=== PATIENT | female | born 2000 | race Asian ===

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

== ENCOUNTER 2019-10-17 22:23 | Emergency (ER) | payer OTHER ==
[~2019-10-17] VITALS: Ht 180.3 cm; Wt 50.8 kg
[2019-10-17 23:17] LABS: PLATELET COUNT 188 K/uL (152-353)
[2019-10-17 23:19] LABS: POTASSIUM 3.4 mmol/L (3.6-5.2)
[2019-10-17 23:31] LABS: PARTIAL THROMBOPLASTIN TIME 25.5 SECONDS (24.5-33.6)
[2019-10-18 02:58] VITALS: BP 110/68; TEMP 98.2
== END 2019-10-18 02:58 | disposition home or self-care (01) ==
LOC: ED 22:23
PROVIDERS: Hospitalist
DX: S09.8XXA Other specified injuries of head, initial encounter (principal); S06.0X1A Concussion with loss of consciousness of 30 minutes or less, initial encounter; S16.1XXA Strain of muscle, fascia and tendon at neck level, initial encounter; V86.55XA Driver of 3- or 4- wheeled all-terrain vehicle (ATV) injured in nontraffic accident, initial encounter; Y92.89 Other specified places as the place of occurrence of the external cause
CPT/HCPCS: 36415; 80053; 80320; 81000; 81025; 85027; 85610; 85730; 99283

== ENCOUNTER 2019-12-11 19:53 | Emergency (ER) | payer OTHER ==
[~2019-12-11] VITALS: Ht 180.3 cm; Wt 53.1 kg
[2019-12-11 21:29] VITALS: BP 105/68; TEMP 98.4
== END 2019-12-11 21:29 | disposition home or self-care (01) ==
LOC: ED 19:53
DX: S83.8X1A Sprain of other specified parts of right knee, initial encounter (principal); W18.39XA Other fall on same level, initial encounter; X50.1XXA Overexertion from prolonged static or awkward postures, initial encounter; Y92.098 Other place in other non-institutional residence as the place of occurrence of the external cause
CPT/HCPCS: 96372; 99283; J1885

== ENCOUNTER 2020-08-22 10:51 | Emergency (ER) | payer OTHER ==
[~2020-08-22] VITALS: Ht 180.3 cm; Wt 49.0 kg
[2020-08-22 11:39] LABS: PLATELET COUNT 170 K/uL (152-353)
[2020-08-22 11:51] LABS: POTASSIUM 3.8 mmol/L (3.6-5.2)
[2020-08-22 13:30] VITALS: BP 102/55; TEMP 97.7
== END 2020-08-22 13:30 | disposition home or self-care (01) ==
LOC: ED 10:51
PROVIDERS: Family Medicine
DX: U07.1 COVID-19 (principal); Z34.91 Encounter for supervision of normal pregnancy, unspecified, first trimester; J02.9 Acute pharyngitis, unspecified
CPT/HCPCS: 36415; 80053; 81025; 85027; 87635; 87651; 99283; U0003

== ENCOUNTER 2021-02-01 16:12 | Emergency (ER) | payer OTHER ==
[~2021-02-01] VITALS: Ht 180.3 cm; Wt 49.9 kg
[2021-02-01 16:14] VITALS: BP 109/64; TEMP 99.1
== END 2021-02-01 18:25 | disposition home or self-care (01) ==
LOC: ED 16:12
PROC: 0HQFXZZ Repair Right Hand Skin, External Approach (ICD-10-PCS; principal; 2021-02-01)
DX: S61.411A Laceration without foreign body of right hand, initial encounter (principal); W45.8XXA Other foreign body or object entering through skin, initial encounter; Y92.89 Other specified places as the place of occurrence of the external cause
CPT/HCPCS: 99283

== ENCOUNTER 2021-02-17 16:37 | Emergency (ER) | payer OTHER ==
[~2021-02-17] VITALS: Ht 180.3 cm; Wt 49.9 kg
[2021-02-17 16:47] VITALS: BP 105/59; TEMP 97.7
== END 2021-02-17 17:20 | disposition home or self-care (01) ==
LOC: ED 16:37
DX: S61.216D Laceration without foreign body of right little finger without damage to nail, subsequent encounter (principal); X58.XXXD Exposure to other specified factors, subsequent encounter; Y92.89 Other specified places as the place of occurrence of the external cause

== ENCOUNTER 2021-09-14 12:30 | Emergency (ER) | payer OTHER ==
[~2021-09-14] VITALS: Ht 180.3 cm; Wt 64.9 kg
[2021-09-14 12:30] VITALS: BP 98/54; TEMP 98.5
== END 2021-09-14 14:39 | disposition home or self-care (01) ==
LOC: ED 12:30
DX: R51.9 Headache, unspecified (principal); Z53.21 Procedure and treatment not carried out due to patient leaving prior to being seen by health care provider; Z3A.34 34 weeks gestation of pregnancy
CPT/HCPCS: 99281